=== PATIENT | female | born 1950 | race African-American/Black ===

== ENCOUNTER 2017-06-30 18:26 | Emergency (ER) | payer BC ==
[~2017-06-30] VITALS: Ht 165.1 cm; Wt 81.6 kg
[2017-06-30 18:40] VITALS: BP 146/86
[2017-06-30] MEDS ORDERED: CYCL10TA2 PO (19:19)
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
== END 2017-06-30 19:25 | disposition home or self-care (01) ==
LOC: ER 18:26
DX: M54.9 Dorsalgia, unspecified (principal); Z88.5 Allergy status to narcotic agent; Z91.040 Latex allergy status; V43.52XA Car driver injured in collision with other type car in traffic accident, initial encounter; Y93.I9 Activity, other involving external motion; Y92.410 Unspecified street and highway as the place of occurrence of the external cause; Y99.8 Other external cause status
CPT/HCPCS: 99283

== ENCOUNTER 2019-11-30 17:37 | Emergency (ER) | payer OTHER, BC ==
[~2019-11-30] VITALS: Ht 165.1 cm; Wt 79.4 kg
[~2019-11-30 17:37] MED LIST: CYCL10TA2 PO
[2019-11-30 17:55] VITALS: BP 118/82
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
--- NOTE | 2019-11-30 22:09 | RAD ---
Exam: Chest 2 views INDICATION: Lesion on x-ray TECHNIQUE: Frontal and lateral views of the chest Comparisons: None FINDINGS: The cardiomediastinal silhouette and pulmonary vessels are within normal limits. There is redemonstration of the previous abnormality which is now better localized in the posterior mediastinum measuring approximately 4.9 x 3.0 x 2.6 cm. The lung and pleural spaces are clear. IMPRESSION: Redemonstrated abnormality now better localized and posterior mediastinum measuring 4.9 x 3.0 cm. Given the position differential considerations include diverticula off of the esophagus, paraspinal/neural origin abnormality, or saccular aneurysm. CT of chest with contrast(not PE study) is recommended for further evaluation. Electronically signed by: Sandee Roca MD (11/30/2019 10:07 PM) [facility]
[2019-11-30] MEDS ORDERED: HYDR-3164 PO (22:28)
[2019-11-30] MEDS ORDERED: CYCL10TA2 PO (22:28)
[2019-11-30] MEDS ORDERED: FLUT9.9S NS (22:28)
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
== END 2019-11-30 22:30 | disposition home or self-care (01) ==
LOC: ER 17:37
DX: M54.5 Low back pain (principal); G89.29 Other chronic pain; I10 Essential (primary) hypertension; Z91.040 Latex allergy status; Z88.5 Allergy status to narcotic agent; V98.8XXA Other specified transport accidents, initial encounter; Y93.I9 Activity, other involving external motion; Y92.488 Other paved roadways as the place of occurrence of the external cause; Y99.8 Other external cause status
CPT/HCPCS: 71046; 72040; 72100; 72125; 72131; 99284

== ENCOUNTER → 2019-12-19 | Outpatient (CLI) | payer BC, OTHER ==
[2019-11-30 17:55] VITALS: BP 118/82
[~2019-12-19] MED LIST changes: +FLUT9.9S NS; +HYDR-3164 PO; +IOHEXOL 300 MG/ML 100ML VIAL. IV ONE
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
== END | disposition home or self-care (01) ==
LOC: KCIC CT 08:36
PROVIDERS: ATTEND Family Medicine
DX: R22.2 Localized swelling, mass and lump, trunk (principal); K82.8 Other specified diseases of gallbladder; K76.9 Liver disease, unspecified; M89.9 Disorder of bone, unspecified; N63.10 Unspecified lump in the right breast, unspecified quadrant
CPT/HCPCS: 71260; 82565; Q9967

== ENCOUNTER → 2020-01-08 | Outpatient (CLI) | payer BC, OTHER ==
[~2020-01-08] MED LIST changes: -IOHEXOL 300 MG/ML 100ML VIAL. IV ONE
--- NOTE | 2020-01-09 08:52 | RAD ---
History: Routine screening. Technique: Bilateral digital mammographic routine views were obtained with CAD - computer aided detection. Comparison: Chest CT with IV contrast of 12/19/2019 and bilateral screening mammogram of 04/15/2016 as well as limited right breast ultrasound and right diagnostic mammogram of 04/23/2016. Findings: Breast Tissue Density B :The breast tissue is composed of mixed fatty and fibroglandular tissue. A 1.4 cm isodense oval mass with indistinct margins at the right 12:00 position 5 cm from the nipple persists unchanged. It was recommended for short-term follow-up in 3 months if MRI could not be performed but it is unclear if that recommend follow-up has been completed. There are otherwise no suspicious masses, microcalcifications or areas of architectural distortion. The left mammogram is negative. Impression: Incomplete. Right breast needs additional imaging. BI-RADS Category 0: Incomplete: Need additional imaging evaluation. Recommend spot compression views of the right breast in the CC and true lateral projection with a full-field lateral view, including possible use of a grid for skin marking and subsequent targeted ultrasound. A mammogram does not have 100% sensitivity and therefore a negative imaging study should not delay further work up of a suspicious abnormality. The patient will receive a letter with the results in the mail. Patient information is entered into the reminder system with a target due date for the next screening mammogram. The patient will receive a reminder. "Our facility is accredited by the [employer] Mammography [employer]." BI-RADS 0 -- incomplete assessment
== END | disposition home or self-care (01) ==
LOC: MAMMO 09:16
PROVIDERS: ATTEND Family Medicine
DX: Z12.31 Encounter for screening mammogram for malignant neoplasm of breast (principal)
CPT/HCPCS: 77063; 77067

== ENCOUNTER → 2020-01-18 | Outpatient (CLI) | payer BC, OTHER, MEDICARE ==
--- NOTE | 2020-01-18 11:30 | RAD ---
Right diagnostic mammogram INDICATION: Screening recall for superior right breast mass. COMPARISON: Right mammogram of 04/15/2016 and MRI report of 08/11/2016. TECHNIQUE: CC spot compression and full-field right ML views were obtained with 2-D technique and reviewed with computer-aided detection. FINDINGS: Almost entirely fatty replaced breasts. Additional views of the right breast show the asymmetry to be isodense and unchanged in size and shape from 2016. With additional benign results on breast MRI as reported on August 11, 2016, this finding likely represents a benign island of fibroglandular tissue that requires no further follow-up. IMPRESSION: Benign right diagnostic mammographic findings. No evidence of malignancy. Recommend return to routine screening next due in one year. BI-RADS Category 2 Benign findings Patient entered into a reminder system with target due date for next mammogram. BI-RADS 2 -- benign findings
== END | disposition home or self-care (01) ==
LOC: MAMMO 10:17
PROVIDERS: ATTEND Family Medicine
DX: R92.8 Other abnormal and inconclusive findings on diagnostic imaging of breast (principal)
CPT/HCPCS: 77065

== ENCOUNTER → 2021-03-18 | Outpatient (CLI) | payer OTHER, BC ==
--- NOTE | 2021-03-19 13:04 | RAD ---
DATE: 03/18/2021 11:03 AM EXAM: MG BILAT SCREEN+JOSEPHINE HISTORY: routine screening evaluation. COMPARISON: 05/04/2016, 01/08/2020 Bilateral CC and MLO views of the breasts were performed. Bilateral breast tomosynthesis was performe d in CC and MLO projections. This study was interpreted with the benefit of Computerized Aided Detection (CAD). FINDINGS: Breast Density: SCATTERED The breast parenchyma shows scattered fibroglandular densities. Breast par enchyma level B Benign calcifications are present. The parenchymal pattern appears stable. No suspicious masses, microcalcifications or architectural distortion is present to suggest malignanc y in either breast. The visualized axillae are unremarkable. IMPRESSION: No mammographic evidence of malignancy. BI-RADS CATEGORY: 2 BENIGN FINDING(S) RECOMMENDED FOLLOW-UP: 12M 12 MONTH FOLLOW-UP Annual screening mammography is recommended, unless cli nically indicated sooner based on symptoms or change in physical exam. PQRS compliance statement: Patient information was entered into a reminder system with a target due d ate for the next mammogram. Mammography is a sensitive method for finding small breast cancers, but it does not detect them all a nd is not a substitute for careful clinical examination. A negative mammogram does not negate a clin ically suspicious finding and should not result in delay in biopsying a clinically suspicious abnorma lity. "Our facility is accredited by the [employer] Mammography [employer]." Electronically signed by: Cayetano Merritt MD (03/19/2021 1:02 PM) [id number]
== END ==
LOC: MAMMO 10:12
PROVIDERS: ATTEND Family Medicine
DX: Z12.31 Encounter for screening mammogram for malignant neoplasm of breast (principal)
CPT/HCPCS: 77063; 77067